=== PATIENT | male | born 1975 | race American Indian/Alaskan Native ===

== ENCOUNTER 2019-05-30 00:44 | Emergency (ER) | payer OTHER ==
[2019-05-30] MEDS ORDERED: ASPIRIN PO ONE (01:13)
[2019-05-30 01:37] LABS: Basophils % (Auto) 0.5 % (0.0-1.8); Eosinophils # (Auto) 0.1 K/mm3 (0.0-0.4); Eosinophils % (Auto) 1.6 % (0.0-4.3); Hematocrit 40.2 % (35.5-45.6); Hemoglobin 13.5 gm/dl (11.8-15.2); Lymphocytes # (Auto) 1.1 K/mm3 (1.2-5.4); Lymphocytes % (Auto) 12.9 % (13.4-35.0); Mean Corpuscular HGB Conc 34 % (32-34); Mean Corpuscular Volume 82 fl (84-94); Monocytes % (Auto) 11.6 % (0.0-7.3); Platelet Count 223 K/mm3 (140-440); Red Blood Count 4.91 M/mm3 (3.65-5.03); Red Cell Distribution Width 14.1 % (13.2-15.2)
--- NOTE | 2019-05-30 01:47 | XRay Report ---
CHEST 1 VIEW INDICATION: Chest Pain. COMPARISON: None. FINDINGS: Support devices: None. Heart: Within normal limits. Lungs/Pleura: No acute air space or interstitial disease. Prior granulomatous exposure. Additional findings: None. IMPRESSION: No acute abnormality. Signer Name: Jayce Malcolm MD Signed: 05/30/2019 1:42 AM Workstation Name: [id number]
[2019-05-30 01:59] LABS: BUN/Creatinine Ratio 12; Blood Urea Nitrogen 11 mg/dL (9-20); Calcium 9.4 mg/dL (8.4-10.2); Hemolysis Index 10
[2019-05-30] MEDS ORDERED: NORCO 5/325 PO ONE (02:01)
[2019-05-30] MEDS ORDERED: NORCO 5/325 ONE (02:05)
[2019-05-30 02:21] VITALS: BP 133/66
--- NOTE | 2019-05-30 02:24 | Emergency Department Report ---
ED Chest Pain HPI - General Chief Complaint: Chest Pain Stated Complaint: CHEST PAIN Time Seen by Provider: 05/30/19 01:45 Source: patient, EMS Mode of arrival: Stretcher Limitations: No Limitations - History of Present Illness Initial Comments: 43-year-old -[place] male presents to the emergency department by EMS from home with a complaint of midsternal chest pain that started yesterday but got worse today. It is a throbbing, dull, aching pain. It is associated with some shortness of breath but he denies any nausea, vomiting or diaphoresis. It does not radiate. Patient says that the pain will sometimes worsened with breathing and certain movements of his torso. No obvious alleviating factors. Patient just recently quit smoking cigarettes about 2 weeks ago but still vapes. He has a past medical history of BPH and has a Qureshi catheter in place. He has not taken anything for her symptoms prior to presentation. No recent travel or sick contacts at home. Severity scale (0 -10): 6 - Related Data Allergies Allergy/AdvReac Type Severity Reaction Status Date / Time No Known Allergies Allergy Verified 05/30/19 00:51 Heart Score - HEART Score History: Slightly suspicious EKG: Normal Age: 45-65 Risk factors: 1-2 risk factors Troponin: < normal limit HEART Score: 2 - Critical Actions Critical Actions: 0-3 pts:0.9-1.7%risk of adverse cardiac event.Candidate for discharge ED Review of Systems ROS: Stated complaint: CHEST PAIN Other details as noted in HPI Comment: All other systems reviewed and negative Constitutional: denies: chills, fever Eyes: denies: eye pain, vision change ENT: denies: ear pain, throat pain Respiratory: shortness of breath. denies: cough Cardiovascular: chest pain. denies: palpitations Gastrointestinal: denies: abdominal pain, vomiting Genitourinary: denies: dysuria, discharge Musculoskeletal: denies: back pain, arthralgia Skin: denies: rash, lesions Neurological: denies: headache, weakness ED Past Medical Hx - Past Medical History Previous Medical History?: Yes Additional medical history: BPH - Surgical History Past Surgical History?: Yes Additional Surgical History: TURP - Social History Smoking Status: Never Smoker Substance Use Type: None ED Physical Exam - General Limitations: No Limitations - Other Other exam information: GENERAL: The patient is well-developed well-nourished. HENT: Normocephalic. Atraumatic. Patient has moist mucous membranes. EYES: Extraocular motions are intact. NECK: Supple. Trachea is midline. CHEST/LUNGS: Clear to auscultation. There is no respiratory distress noted. HEART/CARDIOVASCULAR: Regular. There is no tachycardia. There is no murmur. ABDOMEN: Abdomen is soft, nontender. Patient has normal bowel sounds. There is no abdominal distention. SKIN: Skin is warm and dry. NEURO: The patient is awake, alert, and oriented. The patient is cooperative. The patient has no focal neurologic deficits. Normal speech. MUSCULOSKELETAL: There is no tenderness or deformity. There is no evidence of acute injury. ED Course Vital Signs 05/30/19 05/30/19 05/30/19 00:53 01:07 02:19 Temperature 99.5 F 99.5 F Pulse Rate 92 H 85 81 Respiratory 20 18 16 Rate Blood Pressure 129/67 129/67 Blood Pressure 133/66 [Left] O2 Sat by Pulse 100 98 97 Oximetry ANGÉLICA score - Angélica Score Age > 65: (0) No Aspirin use within the Past 7 Days: (0) No 3 or more CAD Risk Factors: (0) No 2 or more Angina events in past 24 hrs: (1) Yes Known CAD with more than 50% Stenosis: (0) No Elevated Cardiac Markers: (0) No ST Deviation Greater than 0.5mm: (0) No ANGÉLICA Score: 1 ED Medical Decision Making - Lab Data Result diagrams: 05/30/19 01:23 05/30/19 01:23 - EKG Data -: EKG Interpreted by Me EKG shows normal: sinus rhythm, axis, intervals, QRS complexes, ST-T waves Rate: normal - EKG Data When compared to previous EKG there are: previous EKG unavailable Interpretation: normal EKG - Radiology Data Radiology results: report reviewed, image reviewed interpreted by me: Chest x-ray does not show any acute process. There are no pleural effusions, obvious pneumonia and there is no pneumothorax. CT angio chest INDICATION / CLINICAL INFORMATION: CP, elevated dimer. TECHNIQUE: Axial CT images were obtained after injection of IV contrast using CTA protocol. 3 plane MIP / 3D reconstructions were produced. All CT scans at this location are performed using CT dose reduction for ALARA by means of automated exposure control. COMPARISON: None available. FINDINGS: Negative for lung mass, infiltrate or pleural fluid. Scarring is seen at the right middle lobe and right base posteriorly. A noncalcified nodule within the superior segment of the right lower lobe (series 3, image 33) measures 7 mm. Negative for mediastinal mass or adenopathy. No aneurysm, dissection or pulmonary embolus. Imaging of the upper abdomen demonstrates a 1.2 cm hepatic cyst. IMPRESSION: 1. Negative for pulmonary embolus or pneumonia. 2. Mild parenchymal scarring. 3. Incidental 7 mm pulmonary nodule. - Medical Decision Making This patient presents to the emergency department with a complaint of some midsternal chest pain that has been going on since yesterday. EKG does not show any signs of ST elevation VA, ischemia or dysrhythmia. Patient's labs were mostly unremarkable including negative troponins 2. He did have a elevated and equivocal d-dimer. For this reason CT angiography of the chest was done that does not show any pulmonary embolism, dissection, aneurysm and just shows a pulmonary nodule as an incidental finding. Patient was given an aspirin to protect his heart. He was given a single [place] pain pill. He was reevaluated multiple times for multiple hours and he has been seen resting comfortably with almost complete resolution of his symptoms. He is very low on the heart score criteria and ANGÉLICA score. For this reason, the patient will be discharged home with close outpatient cardiology follow-up within the next 48 hours. However the patient has been instructed to return to the emergency Department with any worsening of his symptoms or with any acute distress. - Differential Diagnosis VA, PE, costochondritis, pneumonia Critical Care Time: No Critical care attestation.: If time is entered above; I have spent that time in minutes in the direct care of this critically ill patient, excluding procedure time. ED Disposition Clinical Impression: Pulmonary nodule Chest pain Qualifiers: Chest pain type: unspecified Qualified Code(s): R07.9 - Chest pain, unspecified Disposition: DC-01 TO HOME OR SELFCARE Is pt being admited?: No Condition: Stable Instructions: Chest Pain (ED), Pulmonary Nodules (ED) Additional Instructions: Please follow-up with a primary care physician in the next few days. Return to the emergency Department with any worsening of your symptoms or with any acute distress. You should be contacted by someone at [facility] cardiology to set up a close outpatient follow-up appointment within the next 48 hours. Referrals: PITO REVELES MD [Staff Physician] - 2-3 Days [facility] [Outside] - 2-3 Days [facility] [Provider Group] - 2-3 Days Time of Disposition: 05:34
--- NOTE | 2019-05-30 04:19 | Cat Scan Report ---
CT angio chest INDICATION / CLINICAL INFORMATION: CP, elevated dimer. TECHNIQUE: Axial CT images were obtained after injection of IV contrast using CTA protocol. 3 plane MIP / 3D rec onstructions were produced. All CT scans at this location are performed using CT dose reduction for A ALMITA by means of automated exposure control. COMPARISON: None available. FINDINGS: Negative for lung mass, infiltrate or pleural fluid. Scarring is seen at the right middle lobe and ri ght base posteriorly. A noncalcified nodule within the superior segment of the right lower lobe (seri es 3, image 33) measures 7 mm. Negative for mediastinal mass or adenopathy. No aneurysm, dissection or pulmonary embolus. Imaging of the upper abdomen demonstrates a 1.2 cm hepatic cyst. IMPRESSION: 1. Negative for pulmonary embolus or pneumonia. 2. Mild parenchymal scarring. 3. Incidental 7 mm pulmonary nodule. INCIDENTAL PULMONARY NODULE RECOMMENDATIONS Solid Nodule size 6-8 mm -- Single - Low Risk Patient: CT at 6-12 months, then consider CT at 18-24 months - High Risk Patient: CT at 6-12 months, then CT at 18-24 months Note These recommendations do not apply to lung cancer screening, patients with immunosuppression, o r patients with known primary cancer. Note Newly detected indeterminate nodule in persons 35 years of age or older. Persons under the age of 35 should not receive follow-up unless there is a known primary cancer. Low Risk Patient -- minimal or absent history of smoking and of other known risk factors. High Risk Patient -- history of smoking or of other known risk factors. Nodule dimensions are average of long and short axes, rounded to the nearest millimeter. Based on 2017 Fleischner Society Guidelines found in Radiology 2017 284:228-243. [email or web address] Signer Name: Jayce Malcolm MD Signed: 05/30/2019 4:15 AM Workstation Name: [email or web address]
== END 2019-05-30 06:53 | disposition home or self-care (01) ==
LOC: ED 00:44
DX: R91.1 Solitary pulmonary nodule (principal); R07.89 Other chest pain; R06.02 Shortness of breath; Z87.430 Personal history of prostatic dysplasia; Z98.890 Other specified postprocedural states
CPT/HCPCS: 36415; 71045; 71275; 80048; 84484; 85025; 85379; 93005; 93010; 99285; Q9967